=== PATIENT | female | born 1980 | race Caucasian/White ===

== ENCOUNTER 2017-06-12 22:04 | Emergency (ER) | payer SELFPAY ==
[~2017-06-12] VITALS: Ht 157.5 cm; Wt 92.8 kg
[~2017-06-12 22:04] MED LIST: ATROVENT 0.03%30 ML BOTH NARES; AUGMENTIN875 MG PO; ENDOCET 5-3251 EACH PO; IBUPROFEN800 MG PO; PRENATAL TABLE1 EACH PO; PSEUDOEPHEDRINE30 MG PO; ZANTAC150 MG PO; ZYRTEC10 M3 PO
[2017-06-12] MEDS ORDERED: TOBREX5 ML BOTH EYES (23:20)
[2017-06-12 23:53] VITALS: BP 124/93
== END 2017-06-12 23:53 | disposition home or self-care (01) ==
LOC: EME 22:04
DX: H10.9 Unspecified conjunctivitis (principal); J02.9 Acute pharyngitis, unspecified
CPT/HCPCS: 87651 90; 99281; 99283